=== PATIENT | female | born 1990 | race Caucasian/White ===

== ENCOUNTER 2018-11-08 05:03 | Inpatient (IN) | payer BC ==
[2018-11-08] MEDS ORDERED: Water For Irrigation,Sterile 1,000 ML Container IRR PRN (05:25)
[2018-11-08] MEDS ORDERED: Lidocaine 1% 50 ML MDV INJECT PRN (05:25)
[2018-11-08] MEDS ORDERED: Sodium Chloride 0.9% 2.5 ML Syringe FLUSH PRN (05:25)
[2018-11-08] MEDS ORDERED: Misoprostol 25 MCG (1/4 of 100 MCG) Tab VAG PRN ×2 (05:25)
[2018-11-08] MEDS ORDERED: Methylergonovine 0.2 MG/1 ML Amp IM PRN (05:25)
[2018-11-08] MEDS ORDERED: Carboprost Tromethamine 250 MCG/1 ML Amp IM PRN (05:25)
[2018-11-08] MEDS ORDERED: Nalbuphine 10 MG/1 ML Vial IVPUSH PRN (05:25)
[2018-11-08] MEDS ORDERED: Butorphanol 1 MG/ML SDV IVPUSH PRN (05:25)
[2018-11-08] MEDS ORDERED: Tranexamic Acid 1,000 MG in Sodium Chloride 0.9% 100 ML IV PRN (05:25)
[2018-11-08] MEDS ORDERED: Misoprostol 200 MCG Tab PO PRN (05:25)
[2018-11-08] MEDS ORDERED: Terbutaline 1 MG/ML SDV SUBCUT PRN (05:25)
[2018-11-08] MEDS ORDERED: Sodium Chloride 0.9% 10 ML Syringe FLUSH PRN (05:25)
[2018-11-08] MEDS ORDERED: Oxytocin/0.9 % Sodium Chloride 30 UNIT/500 ML BAG IV SCH ×2 (05:30)
[2018-11-08] MEDS: Lactated Ringers 1,000 ML IV SCH ×2 (06:20→17:20)
[2018-11-08] MEDS ORDERED: Misoprostol 50 MCG (1/2 of 100 MCG) Tab VAG ONE (07:25)
--- NOTE | 2018-11-08 15:58 | PCM.PREANE ---
Preanesthetic Assessment - Procedure Proposed Procedure: CONTINUOUS LABOR EPIDURAL - Anesthesia/Transfusion/Family Hx Anesthesia History: Prior Anesthesia Without Reaction Family History of Anesthesia Reaction: No Transfusion History: No Prior Transfusion(s) - Review of Systems General: No Symptoms Pulmonary: No Symptoms Cardiovascular: No Symptoms Gastrointestinal: No Symptoms - Physical Assessment Height: 1.55 m Weight: 88.451 kg ASA Class: 2E Mental Status: Alert & Oriented x3 Dentition: Reports: Normal Dentition ROM/Head Extension: Full Lungs: Clear to Auscultation Cardiovascular: Regular Rate - Lab Values: Laboratory Last Values WBC 9.70 K/uL (4.0-11.0) 11/08/18 06:10 RBC 4.40 M/uL (4.30-5.90) 11/08/18 06:10 Hgb 12.1 g/dL (12.0-16.0) 11/08/18 06:10 Hct 36.7 % (36.0-46.0) 11/08/18 06:10 MCV 83.4 fL (80.0-98.0) 11/08/18 06:10 MCH 27.5 pg (27.0-32.0) 11/08/18 06:10 MCHC 33.0 g/dL (31.0-37.0) 11/08/18 06:10 RDW Std Deviation 41.9 fl (28.0-62.0) 11/08/18 06:10 RDW Coeff of Daniele 14 % (11.0-15.0) 11/08/18 06:10 Plt Count 258 K/uL (150-400) 11/08/18 06:10 MPV 10.50 fL (7.40-12.00) 11/08/18 06:10 Nucleated RBC % 0.0 /100WBC 11/08/18 06:10 Nucleated RBCs # 0 K/uL 11/08/18 06:10 Blood Type O POSITIVE 11/08/18 06:10 Antibody Screen NEGATIVE 11/08/18 06:10 - Allergies Allergies/Adverse Reactions: Allergies Allergy/AdvReac Type Severity Reaction Status Date / Time Sulfa (Sulfonamide Allergy Rash Verified 09/24/16 20:52 Antibiotics) - Acknowledgements Anesthesia Type Planned: Epidural Pt an Appropriate Candidate for the Planned Anesthesia: Yes Alternatives and Risks of Anesthesia Discussed w Pt/Guardian: Yes Additional Comments: RISKS AND BENEFITS DISCUSSED WITH PATIENT, QUESTIONS ANSWERED, PT WISHES TO PROCEED WITH LOWELL PreAnesthesia Questionnaire - Past Health History Medical/Surgical History: Denies Medical/Surgical History Gastrointestinal History: Reports: Other (See Below) Other Gastrointestinal History: reflux Genitourinary History: Reports: STD Other Genitourinary History: herpes outbreak 1 month ago. on valrtrex for supression CARDIAC SURGEON History: Reports: Other OB/BYN History: 27 wks - Infectious Disease History Infectious Disease History: Reports: Herpes - SUBSTANCE USE Smoking Status *Q: Never Smoker Second Hand Smoke Exposure: No Recreational Drug Use History: No - HOME MEDS Home Medications: Home Meds Doxylamine/Pyridoxine HCl [Diclegis Dr 10-10 mg Tablet] 1 tab PO BEDTIME PRN 11/11 [History] - CURRENT (IN HOUSE) MEDS Current Meds: Current Medications Butorphanol Tartrate (Stadol) 1 mg IVPUSH Q1H PRN PRN Reason: Pain Carboprost Tromethamine (Hemabate Ds) 250 mcg IM ASDIRECTED PRN PRN Reason: Post Hemorrhage Lactated Ringer's (Ringers, Lactated) 1,000 mls @ 150 mls/hr IV ASDIRECTED SKYLAR Last Admin: 11/08/18 06:20 Dose: 150 mls/hr Oxytocin/Sodium Chloride (Oxytocin 30 Unit/500 Ml-Ns) 30 unit in 500 mls @ 500 mls/hr IV TITRATE SKYLAR Oxytocin/Sodium Chloride (Oxytocin 30 Unit/500 Ml-Ns) 30 unit in 500 mls @ 2 mls/hr IV TITRATE SKYLAR; Protocol Last Titration: 11/08/18 15:35 Dose: 10 munits/min, 10 mls/hr Tranexamic Acid 1,000 mg/ (Sodium Chloride) 110 mls @ 660 mls/hr IV ONETIME PRN PRN Reason: Bleeding Lidocaine HCl (Xylocaine 1%) 50 ml INJECT ONETIME PRN PRN Reason: Laceration repair Methylergonovine Maleate (Methergine) 0.2 mg IM ASDIRECTED PRN PRN Reason: Post Hemorrhage Misoprostol (Cytotec) 200 mcg PO ONETIME PRN PRN Reason: Post Hemorrhage Misoprostol (Cytotec) 25 mcg VAG ONETIME PRN PRN Reason: Cervical Ripening Last Admin: 11/08/18 08:40 Dose: 25 mcg Misoprostol (Cytotec) 25 mcg VAG Q4H PRN PRN Reason: Cervical Ripening Nalbuphine HCl (Nubain) 10 mg IVPUSH Q1H PRN PRN Reason: Pain (severe 7-10) Sodium Chloride (Saline Flush) 10 ml FLUSH ASDIRECTED PRN PRN Reason: Keep Vein Open Sodium Chloride (Saline Flush) 2.5 ml FLUSH ASDIRECTED PRN PRN Reason: Keep Vein Open Sterile Water (Sterile Water For Irrigation) 1,000 ml IRR ASDIRECTED PRN PRN Reason: delivery Terbutaline Sulfate (Brethine) 0.25 mg SUBCUT ASDIRECTED PRN PRN Reason: Tacysystole Discontinued Medications Misoprostol (Cytotec) 25 mcg VAG ONETIME ONE Stop: 11/08/18 07:26
[2018-11-08] MEDS ORDERED: fentaNYL 100 MCG/2 ML SDV ONE (17:11)
[2018-11-08] MEDS ORDERED: Bupivacaine 0.25% 10 ML SDV ONE (17:13)
[2018-11-08] MEDS ORDERED: ePHEDrine 50 MG/ML SDV ONE (17:43)
[2018-11-09] MEDS ORDERED: Acetaminophen 500 MG Tab PO PRN (01:30)
[2018-11-09] MEDS ORDERED: Ibuprofen 400 MG Tab PO PRN (01:30)
[2018-11-09] MEDS ORDERED: Lanolin 100% Cream 7 GM Tube TOP PRN (01:30)
[2018-11-09] MEDS ORDERED: oxyCODONE 5 MG Tab PO PRN (01:30)
[2018-11-09] MEDS ORDERED: Bisacodyl 10 MG Supp RECTAL PRN (01:30)
[2018-11-09] MEDS ORDERED: Benzocaine/Menthol 20%-0.5% Spray 78 GM Cannister TOP PRN (01:30)
[2018-11-09] MEDS ORDERED: Witch Hazel Medicated Pads 40/Jar TOP PRN (01:30)
--- NOTE | 2018-11-09 01:35 | PCM.DEL ---
L & D Note - General Info Date of Service: 11/09/18 - Delivery Note Labor: Induced by Oxytocin Cervical Ripening Method: Misoprostil Delivery Outcome: Livebirth Delivery Method: Spontaneous Vaginal Delivery-Single Delivery Mode: Spontaneous Presentation: Right Occiput Anterior (NANDINI) Nuchal Cord: None Prep: Other Anesthesia Type: Epidural Amniotic Fluid Description: Clear Episiotomy Type: None Laceration: 2nd Degree Suture type: Vicryl Suture size: 2-0 Placenta: Intact, Spontaneous Cord: 3 Vessels Estimated Blood Loss: 150 Resuscitation Needed: No Score 1 min: 8 Score 5 min: 9 Induction Criteria - Lopez Score Lopez Score Dilation: 1-2 cm Lopez Score Effacement: 40-50% Lopez Score Infant's Station: -3 Lopez Score Consistency: Firm Lopez Score Cervix Position: Posterior Lopez Score Total: 2 Lopez Score Presenting Part: Reports: Cephalic - Induction Gestational Age >/= 39 wks: Yes Estimated Pelvis: Reports: Adequate Reassuring Monitoring Strip: Yes Absence of Tachy Systole: Yes - General Info Date of Service: 11/09/18 - Patient Data Weight - Most Recent: 195 lb Lab Results Last 24 Hours: Laboratory Results - last 24 hr 11/08/18 11/08/18 Range/Units 06:10 06:10 WBC 9.70 (4.0-11.0) K/uL RBC 4.40 (4.30-5.90) M/uL Hgb 12.1 (12.0-16.0) g/dL Hct 36.7 (36.0-46.0) % MCV 83.4 (80.0-98.0) fL MCH 27.5 (27.0-32.0) pg MCHC 33.0 (31.0-37.0) g/dL RDW Std Deviation 41.9 (28.0-62.0) fl RDW Coeff of Daniele 14 (11.0-15.0) % Plt Count 258 (150-400) K/uL MPV 10.50 (7.40-12.00) fL Nucleated RBC % 0.0 /100WBC Nucleated RBCs # 0 K/uL Blood Type O POSITIVE Antibody Screen NEGATIVE Med Orders - Current: Current Medications Discontinued Medications Bupivacaine HCl (Sensorcaine-Mpf 0.25%) Confirm Administered Dose 10 ml .ROUTE .STK-MED ONE Stop: 11/08/18 17:14 Butorphanol Tartrate (Stadol) 1 mg IVPUSH Q1H PRN PRN Reason: Pain Carboprost Tromethamine (Hemabate Ds) 250 mcg IM ASDIRECTED PRN PRN Reason: Post Hemorrhage Ephedrine Sulfate (Ephedrine Sulfate) Confirm Administered Dose 50 mg .ROUTE .STK-MED ONE Stop: 11/08/18 17:44 Fentanyl (Sublimaze) Confirm Administered Dose 100 mcg .ROUTE .STK-MED ONE Stop: 11/08/18 17:12 Lactated Ringer's (Ringers, Lactated) 1,000 mls @ 150 mls/hr IV ASDIRECTED SKYLAR Last Infusion: 11/08/18 17:20 Dose: 999 mls/hr Oxytocin/Sodium Chloride (Oxytocin 30 Unit/500 Ml-Ns) 30 unit in 500 mls @ 500 mls/hr IV TITRATE SKYLAR Oxytocin/Sodium Chloride (Oxytocin 30 Unit/500 Ml-Ns) 30 unit in 500 mls @ 2 mls/hr IV TITRATE SKYLAR; Protocol Last Titration: 11/09/18 01:00 Dose: 999 munits/min, 999 mls/hr Tranexamic Acid 1,000 mg/ (Sodium Chloride) 110 mls @ 660 mls/hr IV ONETIME PRN PRN Reason: Bleeding Fentanyl/Bupivacaine HCl (Cbioyijp-Biocn-Jn 2 Mcg/Ml-0.125%) Confirm Administered Dose 100 mls @ as directed .ROUTE .STK-MED ONE Stop: 11/08/18 17:12 Fentanyl/Bupivacaine HCl (Jxzupnvh-Iotcx-Vk 2 Mcg/Ml-0.125%) Confirm Administered Dose 100 mls @ as directed .ROUTE .STK-MED ONE Stop: 11/09/18 00:26 Lidocaine HCl (Xylocaine 1%) 50 ml INJECT ONETIME PRN PRN Reason: Laceration repair Methylergonovine Maleate (Methergine) 0.2 mg IM ASDIRECTED PRN PRN Reason: Post Hemorrhage Misoprostol (Cytotec) 200 mcg PO ONETIME PRN PRN Reason: Post Hemorrhage Misoprostol (Cytotec) 25 mcg VAG ONETIME PRN PRN Reason: Cervical Ripening Last Admin: 11/08/18 08:40 Dose: 25 mcg Misoprostol (Cytotec) 25 mcg VAG Q4H PRN PRN Reason: Cervical Ripening Misoprostol (Cytotec) 25 mcg VAG ONETIME ONE Stop: 11/08/18 07:26 Nalbuphine HCl (Nubain) 10 mg IVPUSH Q1H PRN PRN Reason: Pain (severe 7-10) Sodium Chloride (Saline Flush) 10 ml FLUSH ASDIRECTED PRN PRN Reason: Keep Vein Open Sodium Chloride (Saline Flush) 2.5 ml FLUSH ASDIRECTED PRN PRN Reason: Keep Vein Open Sterile Water (Sterile Water For Irrigation) 1,000 ml IRR ASDIRECTED PRN PRN Reason: delivery Last Admin: 11/09/18 00:50 Dose: 1,000 ml Terbutaline Sulfate (Brethine) 0.25 mg SUBCUT ASDIRECTED PRN PRN Reason: Tacysystole - Problem List & Annotations (1) Vaginal delivery SNOMED Code(s): 324529433 Code(s): O80 - ENCOUNTER FOR FULL-TERM UNCOMPLICATED DELIVERY Status: Acute Current Visit: Yes (2) Anxiety SNOMED Code(s): 85565467 Code(s): F41.9 - ANXIETY DISORDER, UNSPECIFIED Status: Acute Current Visit: Yes - Problem List Review Problem List Initiated/Reviewed/Updated: Yes - My Orders Last 24 Hours: My Active Orders 11/08/18 05:26 Communication Order [RC] ASDIRECTED Communication Order [RC] ASDIRECTED Communication Order [RC] ASDIRECTED Heart Tones [RC] CONTINUOUS May Shower [RC] ASDIRECTED Notify Provider [RC] PRN Notify Provider [RC] PRN Notify Provider [RC] PRN Notify Provider [RC] STAT Oxygen Therapy [RC] ASDIRECTED Up ad Natalya [RC] ASDIRECTED Vital Signs [RC] PER UNIT ROUTINE 11/09/18 01:01 BLOOD GAS ARTERIAL UMBILICAL [BG] Routine BLOOD GAS VENOUS UMBILICAL [BG] Routine 11/09/18 01:30 Patient Status [ADT] Routine May Shower [RC] ASDIRECTED Up ad Natalya [RC] ASDIRECTED Vital Signs [RC] PER UNIT ROUTINE Acetaminophen [Tylenol Extra Strength] 1,000 mg PO Q4H PRN Acetaminophen [Tylenol Extra Strength] 500 mg PO Q4H PRN Benzocaine/Menthol [Dermoplast Pain Relief 20%-0.5% Majestic] 78 gm TOP ASDIRECTED PRN Bisacodyl [Dulcolax] 10 mg RECTAL ONETIME PRN Docusate Sodium [Colace] 100 mg PO BID PRN Ibuprofen [Motrin] 400 mg PO Q4H PRN Ibuprofen [Motrin] 800 mg PO Q6H PRN Lanolin [Lansinoh HPA] See Dose Instructions TOP ASDIRECTED PRN Witch Perla [Tucks] 1 pad TOP ASDIRECTED PRN oxyCODONE 5 mg PO Q2H PRN Assess Lochia [WOMSER] Per Unit Routine Assess Uterine Involution [WOMSER] Per Unit Routine Breast Pump [WOMSER] Per Unit Routine Peripheral IV Discontinue [OM.PC] Routine Resuscitation Status Routine 11/09/18 01:31 Perineal Care [OM.PC] Per Unit Routine 11/09/18 09:00 Escitalopram [Lexapro] 20 mg PO DAILY 11/09/18 Breakfast Regular Diet [DIET] 11/10/18 05:11 HEMOGLOBIN/HEMATOCRIT,HH [HEME] Timed
[2018-11-09] MEDS: Ibuprofen 800 MG Tab PO PRN ×4 (03:19→21:47)
--- NOTE | 2018-11-09 04:51 | OR ---
SURGEON: Olga Lidia Harrison MD DATE OF PROCEDURE: 11/09/2018 PREOPERATIVE DIAGNOSES: 1. Term at 39 weeks and 2 days' gestation. 2. Extreme anxiety. POSTOPERATIVE DIAGNOSES: 1. Term at 39 weeks and 2 days' gestation. 2. Extreme anxiety. 3. Delivered. PROCEDURE: Induction of labor with spontaneous vaginal delivery and repair of 2nd degree perineal laceration. ANESTHESIA: Epidural. ESTIMATED BLOOD LOSS: 150 mL. COMPLICATIONS: None. DISPOSITION: Mother and baby stable in Labor and Delivery room, bonding. FINDINGS: Female infant, weight 3790 g, scores of 8 and 9 at 1 and 5 minutes respectively. Grossly normal placenta with 3-vessel cord. Second-degree perineal laceration. 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 The patient is known to have a history of genital herpes and has had no outbreaks throughout this remaining on suppressive antiviral therapy. Due to the complications at her last delivery, she had been extremely anxious throughout this and worrying that this will have the same fate as her son who is actually doing very well now with no sequelae. She opted for Induction of labor due to the above psychological reasons.Her care was otherwise uncomplicated with negative GBS screen. On admission she was 1-2 cm dilated, 40% efface, station -1 and No herpetic lesions were visualized. She received Cytotec for cervical ripening followed by oxytocin titration as per protocol. Artificial rupture of membranes was performed 6 hours after, when she was 3 to 4 cm dilated station, 70% effaced with clear fluid returned. She then requested and received epidural for pain management and progressed to full dilatation commencing active pushing thereafter. The heart tracing was mainly Category 1 alternating with a Category 2 some times. The maximum dose of Pitocin was 6 milliunits. She pushed well bringing the baby's head down to +4 station with 30mins and was set up for delivery in modified dorsal lithotomy position. DESCRIPTION OF PROCEDURE: She had a spontaneous vaginal delivery of a live female in right occipital anterior position, no nuchal cord with clear fluid at delivery. Anterior and posterior shoulders and the rest of the baby were delivered without difficulty, and the baby was vigorous at and cried spontaneously. The baby was then delivered onto the maternal abdomen in attendance of the nursery nurse who stimulated and evaluated the baby. With delivery of the infant, oxytocin infusion was converted to titration for active management of third stage of labor. Cord blood and gas samples were obtained after delayed cord clamping was observed, and the cord cut by the father of the baby. Placenta was delivered spontaneously by controlled cord traction, appeared to be complete and intact. Examination of the vaginal wall, cervix, and perineum revealed a second-degree laceration which,was repaired with 2-0 Vicryl in layers and was hemostatic post repair. The patient tolerated the procedure well. Sponge, instrument, and needle counts were correct at the end of the delivery. Of note, although she was very anxious throughout the intrapartum period, she did not require any anxiolytics, and she had carried on throughout the on antidepressant, SSRI, Lexapro. We will monitor the baby closely during the immediate period for any signs of infant's abstinence syndrome. ADUMVIV / COLEENL /[id number] CK
--- NOTE | 2018-11-09 08:00 | PCM.POSTAN ---
POST ANESTHESIA ASSESSMENT - MENTAL STATUS Mental Status: Alert - RESPIRATORY Respiratory Status: Respiratory Rate WNL, Airway Patent, O2 Saturation Stable - CARDIOVASCULAR CV Status: Pulse Rate WNL, Blood Pressure Stable - GASTROINTESTINAL GI Status: No Symptoms - POST OP HYDRATION Hydration Status: Adequate & Stable (Pt comfortable at this time, no signs or symptoms of anesthesia related problems.)
--- NOTE | 2018-11-09 08:01 | PCM48HPAN ---
Post Anesthesia Note - EVALUATION WITHIN 48HRS OF ANESTHETIC Vital Signs in Normal Range: Yes Patient Participated in Evaluation: Yes Respiratory Function Stable: Yes Airway Patent: Yes Cardiovascular Function Stable: Yes Hydration Status Stable: Yes Pain Control Satisfactory: Yes Nausea and Vomiting Control Satisfactory: Yes Mental Status Recovered: Yes - COMMENTS/OBSERVATIONS Free Text/Narrative:: Pt comfortable at this time, no signs or symptoms of anesthesia related problems.
[2018-11-09] MEDS: Escitalopram 10 MG Tab PO SCH (09:03)
[2018-11-09] MEDS: Docusate Sodium 100 MG Cap PO PRN (21:47)
--- NOTE | 2018-11-10 08:14 | PCM.PNPP ---
<Mary Leigh - Last Filed: 11/10/18 08:16> - General Info Date of Service: 11/10/18 Functional Status: Reports: Pain Controlled, Tolerating Diet, Ambulating, Urinating - Review of Systems General: Denies: Fever, Weakness, Fatigue Pulmonary: Denies: Shortness of Breath, Pleuritic Chest Pain, Cough Cardiovascular: Denies: Chest Pain, Palpitations, Dyspnea on Exertion Gastrointestinal: Denies: Abdominal Pain Genitourinary: Denies: Dysuria - General Info Date of Service: 11/10/18 - Patient Data Vital Signs - Most Recent: Last Vital Signs Temp 36.2 C 11/10/18 05:00 Pulse 71 11/10/18 05:00 Resp 16 11/10/18 05:00 BP 133/72 11/10/18 05:00 Pulse Ox 96 11/10/18 05:00 Weight - Most Recent: 195 lb Med Orders - Current: Current Medications Acetaminophen (Tylenol Extra Strength) 500 mg PO Q4H PRN PRN Reason: Pain Acetaminophen (Tylenol Extra Strength) 1,000 mg PO Q4H PRN PRN Reason: Pain Benzocaine/Menthol (Dermoplast Pain Relief 20%-0.5% Lamont) 78 gm TOP ASDIRECTED PRN PRN Reason: Perineal Comfort Measure Last Admin: 11/09/18 03:18 Dose: 1 applicful Bisacodyl (Dulcolax) 10 mg RECTAL ONETIME PRN PRN Reason: Constipation Docusate Sodium (Colace) 100 mg PO BID PRN PRN Reason: Constipation Last Admin: 11/09/18 21:47 Dose: 100 mg Emollient Ointment (Lansinoh Hpa) 0 gm TOP ASDIRECTED PRN PRN Reason: Sore Nipples Last Admin: 11/09/18 03:18 Dose: 1 applic Escitalopram Oxalate (Lexapro) 20 mg PO DAILY SKYLAR Last Admin: 11/09/18 09:03 Dose: 20 mg Ibuprofen (Motrin) 400 mg PO Q4H PRN PRN Reason: Pain Ibuprofen (Motrin) 800 mg PO Q6H PRN PRN Reason: Pain Last Admin: 11/09/18 21:47 Dose: 800 mg Oxycodone HCl (Oxycodone) 5 mg PO Q2H PRN PRN Reason: Pain Witch Perla (Tucks) 1 pad TOP ASDIRECTED PRN PRN Reason: comfort care Last Admin: 11/09/18 03:18 Dose: 1 applic Discontinued Medications Bupivacaine HCl (Sensorcaine-Mpf 0.25%) Confirm Administered Dose 10 ml .ROUTE .STDotspin-MED ONE Stop: 11/08/18 17:14 Butorphanol Tartrate (Stadol) 1 mg IVPUSH Q1H PRN PRN Reason: Pain Carboprost Tromethamine (Hemabate Ds) 250 mcg IM ASDIRECTED PRN PRN Reason: Post Hemorrhage Ephedrine Sulfate (Ephedrine Sulfate) Confirm Administered Dose 50 mg .ROUTE .STK-MED ONE Stop: 11/08/18 17:44 Fentanyl (Sublimaze) Confirm Administered Dose 100 mcg .ROUTE .STDotspin-MED ONE Stop: 11/08/18 17:12 Lactated Ringer's (Ringers, Lactated) 1,000 mls @ 150 mls/hr IV ASDIRECTED SKYLAR Last Infusion: 11/08/18 17:20 Dose: 999 mls/hr Oxytocin/Sodium Chloride (Oxytocin 30 Unit/500 Ml-Ns) 30 unit in 500 mls @ 500 mls/hr IV TITRATE SKYLAR Oxytocin/Sodium Chloride (Oxytocin 30 Unit/500 Ml-Ns) 30 unit in 500 mls @ 2 mls/hr IV TITRATE SKYLAR; Protocol Last Titration: 11/09/18 01:00 Dose: 999 munits/min, 999 mls/hr Tranexamic Acid 1,000 mg/ (Sodium Chloride) 110 mls @ 660 mls/hr IV ONETIME PRN PRN Reason: Bleeding Fentanyl/Bupivacaine HCl (Kzayoyev-Rufmq-Cm 2 Mcg/Ml-0.125%) Confirm Administered Dose 100 mls @ as directed .ROUTE .STDotspin-MED ONE Stop: 11/08/18 17:12 Fentanyl/Bupivacaine HCl (Thvbelre-Hzxsr-Ev 2 Mcg/Ml-0.125%) Confirm Administered Dose 100 mls @ as directed .ROUTE .salgomed-MED ONE Stop: 11/09/18 00:26 Lidocaine HCl (Xylocaine 1%) 50 ml INJECT ONETIME PRN PRN Reason: Laceration repair Methylergonovine Maleate (Methergine) 0.2 mg IM ASDIRECTED PRN PRN Reason: Post Hemorrhage Misoprostol (Cytotec) 200 mcg PO ONETIME PRN PRN Reason: Post Hemorrhage Misoprostol (Cytotec) 25 mcg VAG ONETIME PRN PRN Reason: Cervical Ripening Last Admin: 11/08/18 08:40 Dose: 25 mcg Misoprostol (Cytotec) 25 mcg VAG Q4H PRN PRN Reason: Cervical Ripening Misoprostol (Cytotec) 25 mcg VAG ONETIME ONE Stop: 11/08/18 07:26 Nalbuphine HCl (Nubain) 10 mg IVPUSH Q1H PRN PRN Reason: Pain (severe 7-10) Sodium Chloride (Saline Flush) 10 ml FLUSH ASDIRECTED PRN PRN Reason: Keep Vein Open Sodium Chloride (Saline Flush) 2.5 ml FLUSH ASDIRECTED PRN PRN Reason: Keep Vein Open Sterile Water (Sterile Water For Irrigation) 1,000 ml IRR ASDIRECTED PRN PRN Reason: delivery Last Admin: 11/09/18 00:50 Dose: 1,000 ml Terbutaline Sulfate (Brethine) 0.25 mg SUBCUT ASDIRECTED PRN PRN Reason: Tacysystole - Infant Interaction Infant Disposition, : to Nursery Infant Feeding: Attempted ; Nursed Fair/Poor, Encouraged to Breastfeed Support Person: - Recovery Exam Fundal Tone: Firm Fundal Level: 1 Fingerbreadths Below Umbilicus Fundal Placement: Midline Lochia Amount: Scant Lochia Color: Rubra/Red Perineum Description: Other (see below) Other Perinuem Description: 2nd deg lac Episiotomy/Laceration: None Bladder Status: Voiding Urinary Elimination: Voided - Exam General: Alert, Oriented Neck: Supple Lungs: Clear to Auscultation, Normal Respiratory Effort Cardiovascular: Regular Rate, Regular Rhythm GI/Abdominal Exam: Normal Bowel Sounds, Soft, Non-Tender, No Distention, No Mass Extremities: Normal Inspection, Non-Tender, Normal Capillary Refill, Pedal Edema (trace) Skin: Warm, Dry, Intact - Problem List & Annotations (1) Vaginal delivery SNOMED Code(s): 212327555 Code(s): O80 - ENCOUNTER FOR FULL-TERM UNCOMPLICATED DELIVERY Status: Acute Current Visit: Yes - Problem List Review Problem List Initiated/Reviewed/Updated: Yes - Assessment Assessment:: PPD #1 s/p . Minimal pain and lochia. Would like to work on breast feeding today and go home this afternoon. Will continue lexapro at this time. - Plan Plan:: Discharge home today. Pelvic rest for 6 weeks. Can use OTC ibuprofen/Tylenol as needed for pain. Instructed patient to call if she develops fever greater than 101 or bleeding though a large pad an hour. F/U with [facility] in 6 weeks <Olga Lidia Harrison - Last Filed: 11/10/18 10:14> - Patient Data Vital Signs - Most Recent: Last Vital Signs Temp 36.2 C 11/10/18 05:00 Pulse 71 11/10/18 05:00 Resp 16 11/10/18 05:00 BP 133/72 11/10/18 05:00 Pulse Ox 96 11/10/18 05:00 Med Orders - Current: Current Medications Acetaminophen (Tylenol Extra Strength) 500 mg PO Q4H PRN PRN Reason: Pain Acetaminophen (Tylenol Extra Strength) 1,000 mg PO Q4H PRN PRN Reason: Pain Last Admin: 11/10/18 09:23 Dose: 1,000 mg Benzocaine/Menthol (Dermoplast Pain Relief 20%-0.5% Lamont) 78 gm TOP ASDIRECTED PRN PRN Reason: Perineal Comfort Measure Last Admin: 11/09/18 03:18 Dose: 1 applicful Bisacodyl (Dulcolax) 10 mg RECTAL ONETIME PRN PRN Reason: Constipation Docusate Sodium (Colace) 100 mg PO BID PRN PRN Reason: Constipation Last Admin: 11/10/18 09:24 Dose: 100 mg Emollient Ointment (Lansinoh Hpa) 0 gm TOP ASDIRECTED PRN PRN Reason: Sore Nipples Last Admin: 11/09/18 03:18 Dose: 1 applic Escitalopram Oxalate (Lexapro) 20 mg PO DAILY SKYLAR Last Admin: 11/10/18 09:24 Dose: 20 mg Ibuprofen (Motrin) 400 mg PO Q4H PRN PRN Reason: Pain Ibuprofen (Motrin) 800 mg PO Q6H PRN PRN Reason: Pain Last Admin: 11/10/18 08:24 Dose: 800 mg Oxycodone HCl (Oxycodone) 5 mg PO Q2H PRN PRN Reason: Pain Witch Perla (Tucks) 1 pad TOP ASDIRECTED PRN PRN Reason: comfort care Last Admin: 11/09/18 03:18 Dose: 1 applic Discontinued Medications Bupivacaine HCl (Sensorcaine-Mpf 0.25%) Confirm Administered Dose 10 ml .ROUTE .STDotspin-MED ONE Stop: 11/08/18 17:14 Butorphanol Tartrate (Stadol) 1 mg IVPUSH Q1H PRN PRN Reason: Pain Carboprost Tromethamine (Hemabate Ds) 250 mcg IM ASDIRECTED PRN PRN Reason: Post Hemorrhage Ephedrine Sulfate (Ephedrine Sulfate) Confirm Administered Dose 50 mg .ROUTE .STK-MED ONE Stop: 11/08/18 17:44 Fentanyl (Sublimaze) Confirm Administered Dose 100 mcg .ROUTE .salgomed-MED ONE Stop: 11/08/18 17:12 Lactated Ringer's (Ringers, Lactated) 1,000 mls @ 150 mls/hr IV ASDIRECTED SKYLAR Last Infusion: 11/08/18 17:20 Dose: 999 mls/hr Oxytocin/Sodium Chloride (Oxytocin 30 Unit/500 Ml-Ns) 30 unit in 500 mls @ 500 mls/hr IV TITRATE SKYLAR Oxytocin/Sodium Chloride (Oxytocin 30 Unit/500 Ml-Ns) 30 unit in 500 mls @ 2 mls/hr IV TITRATE SKYLAR; Protocol Last Titration: 11/09/18 01:00 Dose: 999 munits/min, 999 mls/hr Tranexamic Acid 1,000 mg/ (Sodium Chloride) 110 mls @ 660 mls/hr IV ONETIME PRN PRN Reason: Bleeding Fentanyl/Bupivacaine HCl (Ceeubifn-Zepdn-Gf 2 Mcg/Ml-0.125%) Confirm Administered Dose 100 mls @ as directed .ROUTE .STDotspin-MED ONE Stop: 11/08/18 17:12 Fentanyl/Bupivacaine HCl (Dcqazmii-Xdgsb-Rn 2 Mcg/Ml-0.125%) Confirm Administered Dose 100 mls @ as directed .ROUTE .salgomed-MED ONE Stop: 11/09/18 00:26 Lidocaine HCl (Xylocaine 1%) 50 ml INJECT ONETIME PRN PRN Reason: Laceration repair Methylergonovine Maleate (Methergine) 0.2 mg IM ASDIRECTED PRN PRN Reason: Post Hemorrhage Misoprostol (Cytotec) 200 mcg PO ONETIME PRN PRN Reason: Post Hemorrhage Misoprostol (Cytotec) 25 mcg VAG ONETIME PRN PRN Reason: Cervical Ripening Last Admin: 11/08/18 08:40 Dose: 25 mcg Misoprostol (Cytotec) 25 mcg VAG Q4H PRN PRN Reason: Cervical Ripening Misoprostol (Cytotec) 25 mcg VAG ONETIME ONE Stop: 11/08/18 07:26 Nalbuphine HCl (Nubain) 10 mg IVPUSH Q1H PRN PRN Reason: Pain (severe 7-10) Sodium Chloride (Saline Flush) 10 ml FLUSH ASDIRECTED PRN PRN Reason: Keep Vein Open Sodium Chloride (Saline Flush) 2.5 ml FLUSH ASDIRECTED PRN PRN Reason: Keep Vein Open Sterile Water (Sterile Water For Irrigation) 1,000 ml IRR ASDIRECTED PRN PRN Reason: delivery Last Admin: 11/09/18 00:50 Dose: 1,000 ml Terbutaline Sulfate (Brethine) 0.25 mg SUBCUT ASDIRECTED PRN PRN Reason: Tacysystole - Problem List & Annotations (1) Vaginal delivery SNOMED Code(s): 063849318 Code(s): O80 - ENCOUNTER FOR FULL-TERM UNCOMPLICATED DELIVERY Status: Acute Current Visit: Yes (2) Anxiety SNOMED Code(s): 58237336 Code(s): F41.9 - ANXIETY DISORDER, UNSPECIFIED Status: Acute Current Visit: Yes - Plan Plan:: Patient seen and evaluated independently, agree with above assessment and plan.
[2018-11-10] MEDS: Ibuprofen 800 MG Tab PO PRN ×2 (08:24→15:52)
[2018-11-10] MEDS: Acetaminophen 500 MG Tab PO PRN ×2 (09:23→15:52)
[2018-11-10] MEDS: Docusate Sodium 100 MG Cap PO PRN (09:24)
[2018-11-10] MEDS: Escitalopram 10 MG Tab PO SCH (09:24)
[2018-11-10 11:10] VITALS: BP 121/75
== END 2018-11-10 16:20 | disposition home or self-care (01) | DRG 560 ==
LOC: MW.OBCHECK 05:03 → MW.OB 05:05 → MW.OBCHECK 05:26 → MW.OB 05:43 → OBSVTOIN 11-09 01:00 → MW.OB 11-09 08:16
PROVIDERS: ADMIT Obstetrics & Gynecology; ATTEND Obstetrics & Gynecology
PROC: 10E0XZZ Delivery of Products of Conception, External Approach (ICD-10-PCS; principal; 2018-11-09)
PROC: 0KQM0ZZ Repair Perineum Muscle, Open Approach (ICD-10-PCS; 2018-11-09)
PROC: 3E0P7VZ Introduction of Hormone into Female Reproductive, Via Natural or Artificial Opening (ICD-10-PCS; 2018-11-09)
PROC: 0U7C7ZZ Dilation of Cervix, Via Natural or Artificial Opening (ICD-10-PCS; 2018-11-09)
PROC: 10907ZC Drainage of Amniotic Fluid, Therapeutic from Products of Conception, Via Natural or Artificial Opening (ICD-10-PCS; 2018-11-09)
PROC: 10H07YZ Insertion of Other Device into Products of Conception, Via Natural or Artificial Opening (ICD-10-PCS; 2018-11-09)
PROC: 6A550ZT Pheresis of Cord Blood Stem Cells, Single (ICD-10-PCS; 2018-11-09)
PROC: 00HU33Z Insertion of Infusion Device into Spinal Canal, Percutaneous Approach (ICD-10-PCS; 2018-11-09)
DX: O99.344 Other mental disorders complicating childbirth (principal); F41.8 Other specified anxiety disorders; O70.1 Second degree perineal laceration during delivery; O98.32 Other infections with a predominantly sexual mode of transmission complicating childbirth; Z3A.39 39 weeks gestation of pregnancy; Z37.0 Single live birth
CPT/HCPCS: 51702; 59025; 59409; 82803; 85027; 86850; 86900; 86901; A9270-GY; J2590; J7120

== ENCOUNTER 2018-12-17 13:48 | Emergency (ER) | payer BC ==
[2018-12-17] MEDS ORDERED: Sodium Chloride 0.9% 1,000 ML IV ONE (13:55)
[2018-12-17] MEDS ORDERED: Sodium Chloride 0.9% 10 ML SDV IV STA (13:55)
[2018-12-17] MEDS ORDERED: LORazepam 2 MG/ML SDV IVPUSH ONE (13:56)
--- NOTE | 2018-12-17 13:57 | EDM.PDOC ---
ED HPI GENERAL MEDICAL PROBLEM - General Chief Complaint: General Stated Complaint: UNK Time Seen by Provider: 12/17/18 13:56 Source of Information: Reports: Patient - History of Present Illness INITIAL COMMENTS - FREE TEXT/NARRATIVE: HISTORY AND PHYSICAL: History of present illness: [Patient presents with history of near-syncope and panic Is a history of panic disorder, shortly she had presented to [facility] and had nearly passed out there, hence, the [facility] overhear for evaluation She's had similar symptoms in the past with panic she is quite anxious at current however improving after lying down we did provide Ativan she is currently at baseline no fever nausea vomiting chills sweats no chest pain shortness breath headache dizziness or palpitation no bowel or urine symptoms ] Review of systems: As per history of present illness and below otherwise all systems reviewed and negative. Past medical history: As per history of present illness and as reviewed below otherwise noncontributory. Surgical history: As per history of present illness and as reviewed below otherwise noncontributory. Social history: No reported history of drug or alcohol abuse. Family history: As per history of present illness and as reviewed below otherwise noncontributory. Physical exam: HEENT: Atraumatic, normocephalic, pupils reactive, negative for conjunctival pallor or scleral icterus, mucous membranes moist, throat clear, neck supple, nontender, trachea midline. Lungs: Clear to auscultation, breath sounds equal bilaterally, chest nontender. Heart: S1S2, regular, negative for clicks, rubs, or JVD. Abdomen: Soft, nondistended, nontender. Negative for masses or hepatosplenomegaly. Negative for costovertebral tenderness. Pelvis: Stable nontender. Genitourinary: Deferred. Rectal: Deferred. Extremities: Atraumatic, negative for cords or calf pain. Neurovascular unremarkable. Neuro: Awake, alert, oriented. Cranial nerves II through XII unremarkable. Cerebellum unremarkable. Motor and sensory unremarkable throughout. Exam nonfocal. Diagnostics: [CBC CMP UA hCG troponin EKG Chest 1 view Orthostatic vitals ] Therapeutics: [Normal saline Ativan 1 mg IV Ativan 0.5 mg by mouth twice a day #10 no refill ] Impression: [ anxiety disorder ] Medical screening exam Definitive disposition and diagnosis as appropriate pending reevaluation and review of above. - Related Data Allergies Allergy/AdvReac Type Severity Reaction Status Date / Time Sulfa (Sulfonamide Allergy Rash Verified 12/17/18 13:53 Antibiotics) Home Meds: Home Meds Acyclovir 100 mg PO DAILY 12/17/18 [History] Escitalopram [Lexapro] 10 mg PO DAILY 12/17/18 [History] Past Medical History - Past Health History Medical/Surgical History: Denies Medical/Surgical History Gastrointestinal History: Reports: Other (See Below) Other Gastrointestinal History: reflux Genitourinary History: Reports: STD Other Genitourinary History: herpes outbreak 1 month ago. on valrtrex for supression [employer] History: Reports: Other [employer] History: 27 wks - Infectious Disease History Infectious Disease History: Reports: Herpes Social & Family History - Family History Family Medical History: Unobtainable - Caffeine Use Caffeine Use: Reports: Soda ED ROS GENERAL - Review of Systems Review Of Systems: See Below ED EXAM, GENERAL - Physical Exam Exam: See Below Course - Vital Signs Last Recorded V/S: Last Vital Signs Temp 96.9 F 12/17/18 13:48 Pulse 78 12/17/18 15:20 Resp 18 12/17/18 15:20 BP 130/55 L 12/17/18 15:20 Pulse Ox 98 12/17/18 15:20 Orthostatic Blood Pressure [ 123/87 Standing] Orthostatic Blood Pressure [ 116/66 Sitting] Orthostatic Blood Pressure [ 137/90 Supine] - Orders/Labs/Meds Orders: Active Orders 24 hr Category Date Time Status EKG 12 Lead [EKG Documentation Completion] [RC] STAT Care 12/17/18 13:51 Active EKG Documentation Completion [RC] STAT Care 12/17/18 13:56 Active Orthostatic Vital Signs [RC] ASDIRECTED Care 12/17/18 16:11 Active Labs: Laboratory Tests 12/17/18 12/17/18 12/17/18 Range/Units 14:13 14:13 15:22 WBC 10.45 (4.0-11.0) K/uL RBC 5.12 (4.30-5.90) M/uL Hgb 14.4 (12.0-16.0) g/dL Hct 43.4 (36.0-46.0) % MCV 84.8 (80.0-98.0) fL MCH 28.1 (27.0-32.0) pg MCHC 33.2 (31.0-37.0) g/dL RDW Std Deviation 43.6 (28.0-62.0) fl RDW Coeff of Daniele 14 (11.0-15.0) % Plt Count 324 (150-400) K/uL MPV 10.40 (7.40-12.00) fL Neut % (Auto) 68.4 (48.0-80.0) % Lymph % (Auto) 23.9 (16.0-40.0) % [place] % (Auto) 6.3 (0.0-15.0) % Eos % (Auto) 0.9 (0.0-7.0) % Baso % (Auto) 0.5 (0.0-1.5) % Neut # (Auto) 7.2 H (1.4-5.7) K/uL Lymph # (Auto) 2.5 H (0.6-2.4) K/uL Da[place]hin # (Auto) 0.7 (0.0-0.8) K/uL Eos # (Auto) 0.1 (0.0-0.7) K/uL Baso # (Auto) 0.1 (0.0-0.1) K/uL Nucleated RBC % 0.0 /100WBC Nucleated RBCs # 0 K/uL Sodium 137 (136-145) mmol/L Potassium 3.6 (3.5-5.1) mmol/L Chloride 103 (98-107) mmol/L Carbon Dioxide 23.9 (21.0-32.0) mmol/L BUN 7 (7.0-18.0) mg/dL Creatinine 0.8 (0.6-1.0) mg/dL Est Cr Clr Drug Dosing TNP Estimated GFR (MDRD) > 60.0 ml/min Glucose 94 (74-106) mg/dL Calcium 9.3 (8.5-10.1) mg/dL Total Bilirubin 0.4 (0.2-1.0) mg/dL AST 29 (15-37) IU/L ALT 46 (14-63) IU/L Alkaline Phosphatase 114 (46-116) U/L Troponin I < 0.050 (0.000-0.056) ng/mL Total Protein 7.5 (6.4-8.2) g/dL Albumin 3.5 (3.4-5.0) g/dL Globulin 4.0 (2.6-4.0) g/dL Albumin/Globulin Ratio 0.9 (0.9-1.6) Urine Color YELLOW Urine Appearance CLEAR Urine pH 7.5 (5.0-8.0) Ur Specific [place] 1.010 (1.001-1.035) Urine Protein NEGATIVE (NEGATIVE) mg/dL Urine Glucose (UA) NEGATIVE (NEGATIVE) mg/dL Urine Ketones NEGATIVE (NEGATIVE) mg/dL Urine Occult Blood NEGATIVE (NEGATIVE) Urine Nitrite NEGATIVE (NEGATIVE) Urine Bilirubin NEGATIVE (NEGATIVE) Urine Urobilinogen 0.2 (<2.0) EU/dL Ur Leukocyte Esterase NEGATIVE (NEGATIVE) Urine HCG, Qual (NEGATIVE) 12/17/18 Range/Units 15:22 WBC (4.0-11.0) K/uL RBC (4.30-5.90) M/uL Hgb (12.0-16.0) g/dL Hct (36.0-46.0) % MCV (80.0-98.0) fL MCH (27.0-32.0) pg MCHC (31.0-37.0) g/dL RDW Std Deviation (28.0-62.0) fl RDW Coeff of Daniele (11.0-15.0) % Plt Count (150-400) K/uL MPV (7.40-12.00) fL Neut % (Auto) (48.0-80.0) % Lymph % (Auto) (16.0-40.0) % [place] % (Auto) (0.0-15.0) % Eos % (Auto) (0.0-7.0) % Baso % (Auto) (0.0-1.5) % Neut # (Auto) (1.4-5.7) K/uL Lymph # (Auto) (0.6-2.4) K/uL [place] # (Auto) (0.0-0.8) K/uL Eos # (Auto) (0.0-0.7) K/uL Baso # (Auto) (0.0-0.1) K/uL Nucleated RBC % /100WBC Nucleated RBCs # K/uL Sodium (136-145) mmol/L Potassium (3.5-5.1) mmol/L Chloride (98-107) mmol/L Carbon Dioxide (21.0-32.0) mmol/L BUN (7.0-18.0) mg/dL Creatinine (0.6-1.0) mg/dL Est Cr Clr Drug Dosing Estimated GFR (MDRD) ml/min Glucose (74-106) mg/dL Calcium (8.5-10.1) mg/dL Total Bilirubin (0.2-1.0) mg/dL AST (15-37) IU/L ALT (14-63) IU/L Alkaline Phosphatase (46-116) U/L Troponin I (0.000-0.056) ng/mL Total Protein (6.4-8.2) g/dL Albumin (3.4-5.0) g/dL Globulin (2.6-4.0) g/dL Albumin/Globulin Ratio (0.9-1.6) Urine Color Urine Appearance Urine pH (5.0-8.0) Ur Specific [place] (1.001-1.035) Urine Protein (NEGATIVE) mg/dL Urine Glucose (UA) (NEGATIVE) mg/dL Urine Ketones (NEGATIVE) mg/dL Urine Occult Blood (NEGATIVE) Urine Nitrite (NEGATIVE) Urine Bilirubin (NEGATIVE) Urine Urobilinogen (<2.0) EU/dL Ur Leukocyte Esterase (NEGATIVE) Urine HCG, Qual NEGATIVE (NEGATIVE) Meds: Medications Discontinued Medications Generic Name Dose Route Start Last Admin Trade Name Freq PRN Reason Stop Dose Admin Sodium Chloride 1,000 mls @ 999 mls/hr 12/17/18 13:55 12/17/18 14:17 Normal Saline IV 12/17/18 14:55 999 mls/hr STAT ONE Administration Lorazepam 1 mg 12/17/18 13:56 12/17/18 14:16 Ativan IVPUSH 12/17/18 13:57 1 mg ONETIME ONE Administration Sodium Chloride 999 ml 12/17/18 13:55 12/17/18 14:20 Normal Saline IV 12/17/18 13:56 Not Given NOW STA Departure - Departure Time of Disposition: 16:18 Disposition: Home, Self-Care 01 Condition: Good Clinical Impression: Panic anxiety syndrome - Discharge Information Referrals: PCP,Unknown [Primary Care Provider] - Forms: ED Department Discharge Additional Instructions: Medication as prescribed Return if symptoms persist or worsen Follow-up with primary care in 2 weeks sooner as needed [facility] - Primary Care [address] [place] [id number] The following information is given to patients seen in the emergency department who are being discharged to home. This information is to outline your options for follow-up care. We provide all patients seen in our emergency department with a follow-up referral. The need for follow-up, as well as the timing and circumstances, are variable depending upon the specifics of your emergency department visit. If you don't have a primary care physician on staff, we will provide you with a referral. We always advise you to contact your personal physician following an emergency department visit to inform them of the circumstance of the visit and for follow-up with them and/or the need for any referrals to a consulting specialist. The emergency department will also refer you to a specialist when appropriate. This referral assures that you have the opportunity for follow-up care with a specialist. All of these measure are taken in an effort to provide you with optimal care, which includes your follow-up. Under all circumstances we always encourage you to contact your private physician who remains a resource for coordinating your care. When calling for follow-up care, please make the office aware that this follow-up is from your recent emergency room visit. If for any reason you are refused follow-up, please contact the [facility] emergency department at and asked to speak to the emergency department charge nurse. - My Orders Last 24 Hours: My Active Orders 12/17/18 13:51 EKG 12 Lead [EKG Documentation Completion] [RC] STAT 12/17/18 13:56 EKG Documentation Completion [RC] STAT 12/17/18 16:11 Orthostatic Vital Signs [RC] ASDIRECTED - Assessment/Plan Last 24 Hours: My Active Orders 12/17/18 13:51 EKG 12 Lead [EKG Documentation Completion] [RC] STAT 12/17/18 13:56 EKG Documentation Completion [RC] STAT 12/17/18 16:11 Orthostatic Vital Signs [RC] ASDIRECTED
[2018-12-17 14:46] LABS: CHLORIDE,CL 103 mmol/L (98-107); SODIUM,NA 137 mmol/L (136-145)
[2018-12-17 15:41] VITALS: BP 130/55
--- NOTE | 2018-12-17 15:48 | CR ---
EXAMINATION: Portable chest radiograph. HISTORY: Shortness of breath. FINDINGS: The trachea is midline. The cardiomediastinal silhouette is within normal limits. No pulmonary infiltrates, effusions or pneumothorax. Osseous structures appear unremarkable. IMPRESSION: No acute cardiopulmonary process.
== END 2018-12-17 16:35 | disposition home or self-care (01) ==
LOC: MW.ED 13:48
DX: F41.0 Panic disorder [episodic paroxysmal anxiety] (principal); Z79.899 Other long term (current) drug therapy; Z88.2 Allergy status to sulfonamides
CPT/HCPCS: 36415; 71045; 80053; 81003; 81025; 84484; 85025; 93005; 96361; 96374; 99284; J2060; J7040